=== PATIENT | male | born 1975 | race African-American/Black ===

== ENCOUNTER 2016-07-11 05:44 | Emergency (ER) | payer OTHER ==
[~2016-07-11] VITALS: Ht 170.2 cm; Wt 64.5 kg
[~2016-07-11 05:44] MED LIST: DIPH50TA5 PO; FOLI-49 PO; HYDR2TAB3 PO; LEXI700 PO; LORA-444 PO; OXYC-279 PO; RITO100T PO; TRUV PO
[2016-07-11 05:47] VITALS: Ht 170.2 cm; Wt 64.5 kg
[2016-07-11] MEDS ORDERED: ONDANSETRON (ODT) 4 MG TAB ODT STA (06:24)
[2016-07-11] MEDS ORDERED: HYDROmorphONE 1 MG/ML SYG IM STA (06:24)
[2016-07-11] MEDS ORDERED: DIPHENHYDRAMINE 50 MG CAP PO ONE (06:30)
--- NOTE | 2016-07-11 06:54 | ERD ---
ER Documentation Chief Complaint Date/Time DATE: 07/11/16 TIME: 06:49 Chief Complaint sickle cell pain- joint pains HPI This 40-year-old male who presents to emergency department today complaining of a sickle cell crisis. Patient states he took his home Dilaudid but it was not helping. He states that this is how he usually feels when he has a sickle cell crisis. Patient states that he "has a port now". States he also has a history of HIV. Denies any chest pressure or chest pain. Denies any shortness of breath or headache or changes in vision. ROS All systems reviewed and are negative except as per history of present illness. Medications Home Meds Active Scripts Oxycodone HCl/Acetaminophen (Percocet 5-325 mg Tablet) 1 Each Tablet, 1 EACH PO TID for PAIN, #15 TAB Prov:ESTEFANIA SANCHEZ MD 06/06/16 Reported Medications Lorazepam* (Ativan*) 2 Mg Tablet, 2 MG PO HS Y for ANXIETY, #30 TAB 06/09/15 Diphenhydramine Hcl* (Diphenhydramine Hcl*) 50 Mg Tablet, 50 MG PO QHS Y for SLEEP, TAB 06/26/14 Ritonavir* (Norvir*) 100 Mg Tablet, 100 MG PO DAILY 01/01/12 Folic Acid* (Folic Acid*) 1 Mg Tablet, 1 MG PO DAILY 12/05/09 Hydromorphone Hcl (Dilaudid) 2 Mg Tab, 2 MG PO DAILY Y for PAIN LEVEL -12/02/09 Emtricitabine-Tenofovir* (Truvada*) 1 Tab Tab, 1 TAB PO DAILY 12/02/09 Fosamprenavir Calcium (Lexiva) 700 Mg Tablet, 1 TAB PO DAILY 12/02/09 Allergies Allergies: Coded Allergies: ibuprofen (Verified Allergy, Severe, 07/11/16) Penicillins (Verified Allergy, Unknown, 07/11/16) aspirin (Verified Allergy, Unknown, 07/11/16) iodine (Verified Allergy, Unknown, RASH, 07/11/16) PMhx/Soc History of Surgery: Yes (APPENDIX) Anesthesia Reaction: No Hx Neurological Disorder: Yes (TIA) Hx Respiratory Disorders: No Hx Cardiac Disorders: No Hx Psychiatric Problems: No Hx Miscellaneous Medical Probl: Yes (SICKLE CELL,HIV) Hx Alcohol Use: No Hx Substance Use: No Hx Tobacco Use: No Physical Exam Vitals Vital Signs Date Time Temp Pulse Resp B/P Pulse Ox O2 Delivery O2 Flow Rate FiO2 07/11/16 05:47 97.3 89 20 140/89 99 Physical Exam Const: Nontoxic in appearance Head: Atraumatic Eyes: Normal Conjunctiva ENT: Normal External Ears, Nose and Mouth. Neck: Full range of motion..~ No meningismus. Resp: Clear to auscultation bilaterally Cardio: Regular rate and rhythm, no murmurs Abd: Soft, non tender, non distended. Normal bowel sounds Skin: No petechiae or rashes Back: No midline or flank tenderness Ext: No cyanosis, or edema Neur: Awake and alert Psych: Normal Mood and Affect Results 24 hrs Current Medications Medications (Trade) Dose Ordered Sig/Baljit Route PRN Reason Start Time Stop Time Status Last Admin Dose Admin Hydromorphone HCl (Dilaudid) 1 mg ONCE STAT IM 07/11/16 06:24 07/11/16 06:27 DC 07/11/16 06:33 Diphenhydramine HCl (Benadryl) 50 mg ONCE ONCE PO 07/11/16 06:30 07/11/16 06:31 DC 07/11/16 06:33 Ondansetron HCl (Zofran Odt) 4 mg ONCE STAT ODT 07/11/16 06:24 07/11/16 06:27 DC 07/11/16 06:33 Procedures/MDM This is a 40-year-old male who presents to the emergency department today with a known history of sickle cell crisis. Patient was last here 05/23/2016 for similar and has had multiple other visits to this emergency Department. Patient is afebrile and otherwise well-appearing. He has no focal neurologic deficits and he has no gait ataxia. His abdomen is soft and nontender. Has no physical exam findings to suggest a pulmonary embolism or DVT. I have low suspicion for acute coronary syndrome, aortic dissection, sepsis, stroke. Patient did indicate that he had a port now placed was able to get medication through his port however patient was given analgesic medication which included IM Dilaudid and oral Benadryl and Zofran. Patient was instructed to take his usual home medications and he was not requesting any refills at this time. Patient was discharged in fair condition with walking out the emergency Department in no acute distress. At this time the patient is stable for discharge and outpatient management. Patient should follow up with their PCP in the next 1-2 days. They may return to the emergency department sooner for any persistent or worsening of symptoms. Patient understood and agreed with the plan. Departure Diagnosis: Primary Impression: Sickle cell crisis Condition: Fair Patient Instructions: Sickle Cell Pain Crisis Referrals: your PCP Additional Instructions: Call your primary care doctor TOMORROW for an appointment during the next 1-2 days.See the doctor sooner or return here if your condition worsens before your appointment time. Take your Usual pain medication RYLAN PARDO PA-C Jul 11, 2016 06:54
== END 2016-07-11 06:46 | disposition home or self-care (01) ==
LOC: FTE 05:44
DX: D57.00 Hb-SS disease with crisis, unspecified (principal)
CPT/HCPCS: 96372; J1170; Z7502; Z7610

== ENCOUNTER 2016-09-12 15:26 | Emergency (ER) | payer OTHER ==
[~2016-09-12] VITALS: Wt 64.5 kg
[2016-09-12] MEDS ORDERED: SOD CHLORIDE 0.9% 500 ML IV STA (16:52)
[2016-09-12] MEDS ORDERED: morphine 4 MG/ML VIAL IV STA (16:52)
[2016-09-12] MEDS ORDERED: HYDR2TAB15 PO (17:17)
--- NOTE | 2016-09-12 17:25 | RADRPT ---
PROCEDURE: CT Brain without contrast. CLINICAL INDICATION: Headache. Left-sided weakness. TECHNIQUE: A CT of the brain was performed utilizing axial imaging from the skull base through the vertex without IV contrast. Multiplanar reformatted images were made. Images were reviewed on a [employer] workstation. The CTDIvol is 44 mGy and the DLP is 720 mGycm. COMPARISON: Head CT September 26, 2015 FINDINGS: There is no intracranial hemorrhage, mass effect, or midline shift. No extra-axial fluid collection is seen. The ventricles and sulci are normal in size and configuration. The density of the brain is normal, and the merino white matter differentiation appears well-preserved. The visualized paranasal sinuses and osseous structures are grossly unremarkable. IMPRESSION: 1. No evidence of acute intracranial pathology. 2. The brain is normal in appearance. .Ozzy Marx MD, MD Date Time Electronically viewed and signed by .Ozzy Marx MD, on 09/12/2016 17:24 .A/
[2016-09-12 18:11] LABS: ADD SCAN DIFF NO
[2016-09-12 18:12] LABS: BASOPHILS % 0.5 % (0.0-2.0); EOSINOPHILS % 0.7 % (0.0-7.0); HEMATOCRIT 30.8 % (42.0-52.0); HEMOGLOBIN 10.1 g/dl (14.0-18.0); LYMPHOCYTES # 1.2 10^3/ul (0.8-2.9); LYMPHOCYTES % 21.3 % (15.0-51.0); MEAN CORPUSCULAR HEMOGLOBIN 28.4 pg (29.0-33.0); MEAN CORPUSCULAR HGB CONC 32.8 g/dl (32.0-37.0); MEAN CORPUSCULAR VOLUME 86.5 fl (82.0-101.0); MEAN PLATELET VOLUME 9.1 fl (7.4-10.4); MONOCYTE # 0.5 10^3/ul (0.3-0.9); NEUTROPHIL # 3.9 10^3/ul (1.6-7.5); NEUTROPHILS % 67.4 % (39.0-77.0); PLATELET COUNT 211 10^3/UL (140-415); RED BLOOD COUNT 3.56 10^6/ul (4.70-6.10); RED CELL DISTRIBUTION WIDTH 14.9 % (11.5-14.5); WHITE BLOOD COUNT 5.8 10^3/ul (4.8-10.8)
[2016-09-12 18:23] LABS: POTASSIUM 3.9 mmol/L (3.5-5.1)
[2016-09-12 18:25] LABS: CREATININE 0.72 mg/dl (0.61-1.24)
[2016-09-12 18:26] LABS: CALCIUM 9.3 mg/dl (8.4-10.2)
[2016-09-12 18:27] VITALS: BP 145/81; PULSE 65; RESP 13; TEMP 98.7
[2016-09-12] MEDS ORDERED: HYDROmorphONE 1 MG/ML SYG IV STA (18:27)
[2016-09-12 18:34] LABS: ADD UMIC YES; URINE BILIRUBIN (Dip) NEGATIVE (NEGATIVE); URINE BLOOD (Dip) TRACE (NEGATIVE); URINE COLOR LT. YELLOW (YELLOW); URINE GLUCOSE (Dip) NEGATIVE (NEGATIVE); URINE KETONES (Dip) NEGATIVE (NEGATIVE); URINE LEUKOCYTE ESTERASE (Dip) NEGATIVE (NEGATIVE); URINE NITRITE (Dip) NEGATIVE (NEGATIVE); URINE TOTAL PROTEIN (Dip) TRACE (NEGATIVE); URINE UROBILINOGEN (Dip) 0.2 E.U./dL (0.1-1.0)
--- NOTE | 2016-09-12 18:37 | ERD ---
ER Documentation Chief Complaint Date/Time DATE: 09/12/16 TIME: 18:35 Chief Complaint LEFT SIDE WEAKNESS/NUMBNESS ONSET 2 HRS AGO HPI This is a 40-year-old male who presents to the emergency room numbness and tingling on the left side of his body. Patient states that he has had these symptoms previously, and states that they feel similar to his previous episode which was last May. The patient denies any blurred vision or headaches associated with this. He does state he has sickle cell anemia, and states that Dilaudid normally helps his pain along with Benadryl. ROS All systems reviewed and are negative except as per history of present illness. Medications Home Meds Reported Medications Hydromorphone Hcl* (Dilaudid*) 2 Mg Tablet, 2 MG PO TID Y for SEVERE PAIN LEVEL 7-10, TAB 09/12/16 Lorazepam* (Ativan*) 2 Mg Tablet, 2 MG PO HS Y for ANXIETY, #30 TAB 06/09/15 Diphenhydramine Hcl* (Diphenhydramine Hcl*) 50 Mg Tablet, 50 MG PO QHS Y for SLEEP, TAB 06/26/14 Ritonavir* (Norvir*) 100 Mg Tablet, 100 MG PO DAILY 01/01/12 Folic Acid* (Folic Acid*) 1 Mg Tablet, 1 MG PO DAILY 12/05/09 Emtricitabine-Tenofovir* (Truvada*) 1 Tab Tab, 1 TAB PO DAILY 12/02/09 Fosamprenavir Calcium (Lexiva) 700 Mg Tablet, 1 TAB PO DAILY 12/02/09 Discontinued Reported Medications Hydromorphone Hcl (Dilaudid) 2 Mg Tab, 2 MG PO DAILY Y for PAIN LEVEL 6-10 12/02/09 Discontinued Scripts Oxycodone HCl/Acetaminophen (Percocet 5-325 mg Tablet) 1 Each Tablet, 1 EACH PO TID for PAIN, #15 TAB Prov:ESTEFANIA SANCHEZ MD 06/06/16 Allergies Allergies: Coded Allergies: ibuprofen (Verified Allergy, Severe, 09/12/16) Penicillins (Verified Allergy, Unknown, 09/12/16) aspirin (Verified Allergy, Unknown, 09/12/16) iodine (Verified Allergy, Unknown, RASH, 09/12/16) PMhx/Soc History of Surgery: Yes (APPENDIX) Anesthesia Reaction: No Hx Neurological Disorder: Yes (TIA) Hx Respiratory Disorders: No Hx Cardiac Disorders: No Hx Psychiatric Problems: No Hx Miscellaneous Medical Probl: Yes (SICKLE CELL,HIV) Hx Alcohol Use: No Hx Substance Use: No Hx Tobacco Use: No Physical Exam Vitals Vital Signs Date Time Temp Pulse Resp B/P Pulse Ox O2 Delivery O2 Flow Rate FiO2 09/12/16 18:27 98.7 65 13 145/81 98 Room Air 09/12/16 15:28 98.1 79 20 165/82 99 Physical Exam INITIAL VITAL SIGNS: Reviewed by me GENERAL: The patient is well developed and appropriate for usual state of health in no apparent distress HEENT: Pupils equal, round, and reactive to light. EOMI. There is no scleral icterus. NECK: C-spine is soft and supple, there is no meningismus. There is no cervical lymphadenopathy. LUNGS: Clear to auscultation bilaterally. There are no rales, wheezes or rhonchi. HEART: Regular rate and rhythm, no murmurs, clicks, rubs or gallops. ABDOMEN: Soft, non-tender, non-distended. There are bowel sounds in all four quadrants. No rebound or guarding. EXTREMITIES: There is no peripheral cyanosis or edema. No focal swelling or erythema. NEUROLOGICAL: The patient moves all four extremities with 5/5 strength. Cranial nerves II - XII are intact. Normal gait. Alert and oriented to person place and time, no focal neurological deficits SKIN: There is no apparent rash or petechiae. HEME/LYMPHATIC: There is no evidence of excessive bruising or lymphedema. PSYCHIATRIC: The patient does not appear anxious or depressed. Result Diagram: 09/12/16180409/12/161804 Results 24 hrs Laboratory Tests Test 09/12/16 18:05 White Blood Count 5.810^3/ul Red Blood Count 3.5610^6/ul Hemoglobin 10.1g/dl Hematocrit 30.8% Mean Corpuscular Volume 86.5fl Mean Corpuscular Hemoglobin 28.4pg Mean Corpuscular Hemoglobin Concent 32.8g/dl Red Cell Distribution Width 14.9% Platelet Count 28751^3/UL Mean Platelet Volume 9.1fl Neutrophils % 67.4% Lymphocytes % 21.3% Monocytes % 8.0% Eosinophils % 0.7% Basophils % 0.5% Nucleated Red Blood Cells % 0.0/100WBC Neutrophils # 3.910^3/ul Lymphocytes # 1.210^3/ul Monocytes # 0.510^3/ul Eosinophils # 0.010^3/ul Basophils # 0.010^3/ul Nucleated Red Blood Cells # 0.010^3/ul Sodium Level 135mmol/L Potassium Level 3.9mmol/L Chloride Level 99mmol/L Carbon Dioxide Level 28mmol/L Anion Gap 12 Blood Urea Nitrogen 6mg/dl Creatinine 0.72mg/dl Glucose Level 114mg/dl Calcium Level 9.3mg/dl Current Medications Medications (Trade) Dose Ordered Sig/Baljit Route PRN Reason Start Time Stop Time Status Last Admin Dose Admin Sodium Chloride (NS) 500 ml @ 500 mls/hr Q1H STAT IV 09/12/16 16:52 09/12/16 17:51 DC 09/12/16 18:17 Morphine Sulfate (morphine) 4 mg ONCE STAT IV 09/12/16 16:52 09/12/16 16:53 DC 09/12/16 18:19 Hydromorphone HCl (Dilaudid) 0.5 mg ONCE STAT IV 09/12/16 18:27 09/12/16 18:28 DC Procedures/MDM CT head without: No stroke no bleed This 40-year-old male presents to the emergency room for evaluation of left- sided numbness and tingling. When I evaluated this patient he was alert oriented to person place and time, no signs of any focal deficits. Strength is normal in upper and lower extremities bilaterally. CT of the head is normal. Lab work is also within normal limits except for anemia. The patient was given morphine however he stated he wanted Dilaudid due to the fact that the morphine is not working. The patient was also asking for IV Benadryl. I told the patient he can have p.o. Benadryl, he was given 0.5 mg of IV Dilaudid, and lab works within normal limits advised me to follow-up with neurologist as an outpatient to schedule an MRI for evaluation of cervical radiculopathy, and paresthesias. The patient verbalized understanding. Patient has no signs of stroke at this time and will be discharged. Departure Diagnosis: Primary Impression: Paresthesias Additional Impression: Normocytic anemia Condition: Stable SIMON JACKSON DO Sep 12, 2016 18:37
[2016-09-12 18:41] LABS: INR 1.01; PARTIAL THROMBOPLASTIN TIME 29.6 Sec (25.0-35.0); PROTIME 13.3 Sec (12.2-14.2)
[2016-09-12 18:50] LABS: URINE RBCS 0-2 /HPF (0)
== END 2016-09-12 19:00 | disposition home or self-care (01) ==
LOC: E/R 15:26
DX: R20.2 Paresthesia of skin (principal); R40.2252 Coma scale, best verbal response, oriented, at arrival to emergency department; D64.9 Anemia, unspecified; R40.2142 Coma scale, eyes open, spontaneous, at arrival to emergency department; R40.2362 Coma scale, best motor response, obeys commands, at arrival to emergency department
CPT/HCPCS: 36415; 70450; 80048; 81001; 85025; 85610; 85730; 96374; 96375; J1170; J2270; J7040; Z7502; Z7610; 81003